=== PATIENT | female | born 1970 | race Caucasian/White ===

== ENCOUNTER 2021-12-25 09:16 | Day surgery (SDCO) | payer OTHER ==
[~2021-12-25] VITALS: Ht 160 cm; Wt 96.2 kg
[2021-12-25 10:42] LABS: BILIRUBIN NEGATIVE (NEGATIVE); BLOOD TRACE-INTACT Ery/uL (NEGATIVE); CLARITY CLEAR (CLEAR); COLOR YELLOW (YELLOW); GLUCOSE (U) NORMAL (NORMAL); LEUKOCYTES NEGATIVE Leu/uL (NEGATIVE); NITRITE NEGATIVE (NEGATIVE); PROTEIN NEGATIVE (NEGATIVE); SPECIFIC GRAVITY <=1.005 (1.001-1.030); UROBILINOGEN 0.2 mg/dL (0.2-1.0); pH 6.5 (5.0-9.0)
[2021-12-25 10:42] LABS: BASOPHIL 0.6 % (0-2); EOSINOPHIL 0.8 % (0-5); HCT 41.8 % (37.0-47.0); HGB 14.3 g/dl (12.5-16.0); LYMPHOCYTE 15.7 % (15-48); MCH 31.8 pg (25.0-31.0); MCHC 34.2 g/dL (32.0-36.0); MCV 93.1 fL (78.0-100.0); MONOCYTE 9.8 % (0-12); MPV 9.1 fL (6.0-9.5); NEUTROPHIL 72.8 % (41-80); NRBC 0; PLT 143 K/uL (150-400); RBC 4.49 M/uL (4.20-5.40); RDW 12.4 % (11.5-14.0); WBC 10.9 K/uL (4.0-10.5)
[2021-12-25 10:50] LABS: BACTERIA 2+
[2021-12-25 11:09] LABS: ALBUMIN 3.7 g/dL (3.4-5.0); BILIRUBIN - TOTAL 0.4 mg/dL (0.2-1.0); BUN/CREAT RATIO (CALC) 19.2 RATIO; CREATININE 0.78 mg/dL (0.51-0.95); POTASSIUM 4.5 mmol/L (3.5-5.1); TOTAL PROTEIN 7.7 g/dL (6.4-8.2)
[2021-12-26 06:05] LABS: HGB 12.9 g/dl (12.5-16.0); MCH 32.8 pg (25.0-31.0); MCHC 34.9 g/dL (32.0-36.0); MCV 94.1 fL (78.0-100.0); MPV 9.5 fL (6.0-9.5); RBC 3.93 M/uL (4.20-5.40); RDW 12.5 % (11.5-14.0); WBC 8.7 K/uL (4.0-10.5)
[2021-12-26 06:39] LABS: BUN/CREAT RATIO (CALC) 14.3 RATIO; CREATININE 0.77 mg/dL (0.51-0.95)
[2021-12-26] MEDS ORDERED: HYDROCODON-ACE1 EAC6 PO (12:32)
[2021-12-26] MEDS ORDERED: ELIQUIS5 MG PO (12:32)
== END 2021-12-26 14:45 | disposition home or self-care (01) ==
LOC: FER 09:16 → FMS 12:09
PROVIDERS: Emergency Medicine; ADMIT Family Medicine
DX: I26.99 Other pulmonary embolism without acute cor pulmonale (principal); R73.03 Prediabetes; E66.9 Obesity, unspecified; N17.9 Acute kidney failure, unspecified; N63.0 Unspecified lump in unspecified breast; E83.52 Hypercalcemia; D69.6 Thrombocytopenia, unspecified; R73.9 Hyperglycemia, unspecified; Z72.0 Tobacco use
CPT/HCPCS: 36415; 71275; 80048; 80053; 81001; 82550; 83036; 85025; 93005; 94010; 94760; G0378; J1170; J7120; Q9967